=== PATIENT | female | born 1990 | race Caucasian/White ===

== ENCOUNTER 2017-11-12 15:53 | Emergency (ER) | payer SELFPAY ==
[~2017-11-12] VITALS: Ht 162.6 cm; Wt 97.5 kg
[2017-11-12 16:06] VITALS: BP 94/57
--- NOTE | 2017-11-12 16:14 | NUR ---
PATIENT AMBULATED TO BED 12
--- NOTE | 2017-11-12 16:25 | NUR ---
27 y.o female came in from home with her mother, believes 0300 this morning she had a misarraige. Woke up in the middle of the night to extreme pain, went to the bathroom because she thought she had to have BM, she did but shortly after believes she expelled what was a baby. A mass about 3x3x3 came out of her vagina, currently still bleeding and had discharge, using pads to control but it is not stopping. No pain, cramping. Denies pain when you palpate abd. Pt has 3 living children, 4 live births, 2 miscarriages. Pt denies all other hx.
--- NOTE | 2017-11-12 17:07 | NUR ---
Ultrasound came to take pt for imaging
--- NOTE | 2017-11-12 17:07 | NUR ---
PATIENT TAKEN TO ULTRASOUND VIA W/C
--- NOTE | 2017-11-12 17:50 | NUR ---
Pt resting in bed. Continues to deny pain but states she is very tired.
[2017-11-12] MEDS ORDERED: KETOROLAC 30 MG/ML VIAL IM ONE (18:05)
[2017-11-12 18:10] LABS: BASOPHILS % (AUTO) 0.4 % (0.0-2.0); EOSINOPHILS # (AUTO) 0.2 K/uL (0-0.4); EOSINOPHILS % (AUTO) 2.2 % (0.0-4.0); HEMOGLOBIN 13.3 g/dL (12.0-16.0); LYMPHOCYTES # (AUTO) 3.6 K/uL (2.5-16.5); LYMPHOCYTES % (AUTO) 42.6 % (20.5-51.1); MEAN CORPUSCULAR HEMOGLOBIN 29 pg (27-31); MEAN CORPUSCULAR HGB CONC 33 g/dL (33-37); MEAN CORPUSCULAR VOLUME 87.6 fL (80-94); MONOCYTES # (AUTO) 0.5 K/uL (0.8-1.0); MONOCYTES % (AUTO) 6.5 % (1.7-9.3); NEUTROPHILS # (AUTO) 4.1 K/uL (1.8-7.7); NEUTROPHILS % (AUTO) 48.3 % (42.2-75.2); PLATELET COUNT (AUTO) 343 K/uL (140-450); RED BLOOD CELL COUNT(AUTO) 4.57 MIL/uL (4.20-5.40); RED CELL DISTRIBUTION WIDTH 12.6 % (11.6-13.7); WHITE BLOOD COUNT (AUTO) 8.4 K/uL (4.8-10.8)
[2017-11-12 19:15] VITALS: BP 100/62
--- NOTE | 2017-11-12 19:16 | NUR ---
Patient discharged with v/s stable. Written and verbal after care instructions given and explained. Patient alert, oriented and verbalized understanding of instructions. Ambulatory with steady gait. All questions addressed prior to discharge. ID band removed. Patient advised to follow up with PMD. Rx of NORCO 5MG/325 MG, REGLAN 5MG given. Patient educated on indication of medication including possible reaction and side effects. Opportunity to ask questions provided and answered.
[2017-11-12 22:23] LABS: BILIRUBIN,URINE 1+ (NEGATIVE); BLOOD, URINE 3+ (NEGATIVE); COLOR,URINE YELLOW (YELLOW); LEUKOCYTE ESTERASE ,URINE TRACE (NEGATIVE); NITRITE, URINE POSITIVE (NEGATIVE); UGLUCOSE NEGATIVE (NEGATIVE)
[2017-11-12 22:26] LABS: APPEARANCE,URINE HAZY (CLEAR)
[2017-11-12 22:40] LABS: RBC,URINE TOO NUMEROUS TO COUN /HPF (0-5)
--- NOTE | 2017-11-15 11:27 | NUR ---
FINAL LAB FINDING, PT WAS CALLED AND LEFT A MESSAGE TO CALL BACK TO THE ER, NO DETAILED INFO WAS LEFT INM ESSAGE, OTHER THAN MY NAME AND NBR TO LANIE BACK. NUMBER THAT WAS CALLED WAS [phone], OTHER NBR ON FILE WAS A NUMBER WE COULD NOT LEAVE A MESSAGE. [phone].
== END 2017-11-12 19:16 | disposition home or self-care (01) ==
LOC: MED 15:53
DX: O03.4 Incomplete spontaneous abortion without complication (principal); R51 Headache
CPT/HCPCS: 36415; 76817; 81001; 84702; 85025; 86900; 86901; 87086; 87186; 96372; 99285; J1885